=== PATIENT | female | born 1945 | race Caucasian/White ===

== ENCOUNTER 2017-12-01 14:13 | Emergency (ER) | payer BC ==
[2017-12-01 14:41] VITALS: BP 127/85; PULSE 66; TEMP 98.3; BMI 30.9
--- NOTE | 2017-12-01 14:48 | PDOC ---
Attending Attestation - HPI HPI: 12/01/17 15:37 Pt is a 72 yo F with a PMHx of Asthma, Atrial tachycardia, HTN who presents to the ED with R leg pain for the past month. Patients pain has been worsening when standing and is unable to bear full weight. Patient also complains of tenderness behind her knee and presents to the ED for further evaluation. Patient was seen by her orthopedist for the same complaint, with negative workup. - Medical Decision Making 12/01/17 15:37 Documentation prepared by Maria Guadalupe Maher, acting as medical billing associate for Vicky Dougherty MD <Maria Guadalupe Maher - Last Filed: 12/01/17 15:37> - Resident Resident Name: Gunnar Newton - ED Attending Attestation I have performed the following: I have examined & evaluated the patient, The case was reviewed & discussed with the resident, I agree w/resident's findings & plan, Exceptions are as noted - Physicial Exam PE: GENERAL: Awake, alert, and fully oriented, in no acute distress HEAD: No signs of trauma EYES: PERRLA, EOMI, sclera anicteric, conjunctiva clear ENT: Auricles normal inspection, hearing grossly normal, nares patent, oropharynx clear without exudates. Moist mucosa NECK: Normal ROM, supple, no lymphadenopathy, JVD, or masses LUNGS: Breath sounds equal, clear to auscultation bilaterally. No wheezes, and no crackles HEART: Regular rate and rhythm, normal S1 and S2, no murmurs, rubs or gallops ABDOMEN: Soft, nontender, normoactive bowel sounds. No guarding, no rebound. No masses EXTREMITIES: RLE- no ligamentous instability to the knee. Win's test negative. Mild crepitus on ROM of the R knee. No calf or groin tenderness, no peripheral edema. Patient states her pain improves with straight leg raise. Remainder of extremities with normal range of motion, no edema. No clubbing or cyanosis. No cords, erythema, or tenderness NEUROLOGICAL: Cranial nerves II through XII grossly intact. Normal speech. Motor and sensation intact. +Antalgic gait. SKIN: Warm, Dry, normal turgor, no rashes or lesions noted. - Medical Decision Making Ultrasound negative for DVT. However, suspect this is more musculoskeletal in origin, as the pain improves with stretching of the hamstring muscles. Also, when she does have the pain, she indicates the insertion points of the hamstring muscles. Will treat with analgesic and muscle relaxer. Likely DC home. <Vicky Dougherty - Last Filed: 12/01/17 16:22>
--- NOTE | 2017-12-01 15:09 | PDOC ---
History of Present Illness - General Chief Complaint: Pain Stated Complaint: LEG PAIN Time Seen by Provider: 12/01/17 14:46 - History of Present Illness Initial Comments: 12/01/17 15:58 The patient is a 72 year old female with a history of HTN, Atrial tachycardia who presents for evaluation of right leg pain. The patient reports a 1 month history of intermittent right lower extremity pain worse with movement and standing. She states that the pain began after working out on a bike 1 month ago. She states that she has seen Dr. Espinoza on an outpatient basis who informed her that her symptoms were likely muscular in nature. She noted worsening pain while standing today with difficulty ambulating due to pain prompting her presentation to the ED for further evaluation. She denies any recent long travel or surgery and otherwise denies fevers, chills, SOB, chest pain, nausea, vomiting, abdominal pain, or changes with urination or bowel movements. Past History - Past Medical History Allergies/Adverse Reactions: Allergies Allergy/AdvReac Type Severity Reaction Status Date / Time No Known Drug Allergies Allergy Verified 12/01/17 14:37 Home Medications: Ambulatory Orders Aspirin [Aspir 81] 81 mg PO DAILY 11/20/13 Doxycycline Hyclate 100 mg PO DAILY tablet 11/20/13 Metoprolol Tartrate 25 mg PO DAILY tablet 11/20/13 Tiotropium [place] [Spiriva] 18 mcg IH DAILY 11/20/13 Cholecalciferol (Vitamin D3) [Vitamin D3] 5,000 unit PO DAILY 12/08/13 Cyanocobalamin [Vitamin B12 -] 1,000 mcg PO DAILY 12/08/13 Bifidobacterium Infantis [Align] 4 mg PO DAILY capsule 02/25/15 Ascorbate Calcium [Vitamin C] 500 mg PO DAILY 04/22/15 Vitamin B Complex 1 each PO DAILY 04/22/15 Anemia: No Asthma: Yes (?? BUT USES INHALER) Cancer: No Cardiac Disorders: Yes (IRREG HEART BEAT(ATRIAL TACHYCARDIA)) CVA: No COPD: No CHF: No Dementia: No Diabetes: No GI Disorders: Yes (COLONIC POLYPS(ADENOMAS)) Disorders: No HTN: No Hypercholesterolemia: No Liver Disease: No Seizures: No Thyroid Disease: No - Surgical History Appendectomy: No Cardiac Surgery: No Cholecystectomy: No Lung Surgery: No Neurologic Surgery: No Orthopedic Surgery: No - Suicide/Smoking/Psychosocial Hx Smoking History: Former smoker Have you smoked in the past 12 months: No If you are a former smoker, when did you quit?: 1985 Information on smoking cessation initiated: No Hx Alcohol Use: No Drug/Substance Use Hx: No Substance Use Type: None Review of Systems - Review of Systems Comments:: 12/01/17 16:03 Constitutional: No fevers, chills, fatigue, malaise HEENT: No Rhinorrhea, nasal congestion, visual changes Cardiovascular: No chest pain, syncope, palpitations, lightheadedness Respiratory: No Cough, SOB, Hemoptysis, Gastrointestinal: No Abdominal pain, Nausea, Vomiting, Constipation, Diarrhea, Melena Genitourinary: No Dysuria, Frequency, Urgency, Hesitancy, Hematuria, Flank pain Musculoskeletal: Right Leg Pain. No Myalgia, arthralgia Skin: No rashes, itching, bruising, pallor Neurologic: No Headache, Dizziness, Numbness, Weakness, or Tingling Psychiatric: No Hallucinations. No SI or HI *Physical Exam - Vital Signs Last Vital Signs Temp Pulse Resp BP Pulse Ox 98.3 F 66 19 127/85 98 12/01/17 14:37 12/01/17 14:37 12/01/17 14:37 12/01/17 14:37 12/01/17 14:37 - Physical Exam Comments: 12/01/17 16:03 General Appearance: Nourished. No Apparent Distress HEENT: EOMI, AMAURY. No Pharyngeal Erythema, Tonsillar Exudate, Tonsillar Erythema Neck: No Cervical Lymphadenopathy Respiratory/Chest: Lungs Clear, Normal Breath Sounds. No Crackles, Rales, Rhonchi, Wheezing Cardiovascular: Regular Rhythm, Regular Rate. No Murmur, Gallops, Rubs Gastrointestinal/Abdominal: Normal Bowel Sounds, Soft. No Guarding, Rebound, Tenderness Musculoskeletal: No CVA Tenderness Extremity: Normal range of motion of the right lower extremity. No edema or tenderness to palpation on exam. 2+ dp pulses bilaterally. No erythema or warmth noted. Sensation to light touch and temperature intact bilaterally. Normal Capillary Refill Integumentary: Normal Color, Dry, Warm Neurologic: Fully Oriented, Alert, Normal Mood/Affect, Normal Response, Motor Strength 5/5. ED Treatment Course - RADIOLOGY Radiology Studies Ordered: Category Date Time Status DUPLEX VASCUL US-1 LEG [US] Stat Ultrasound 12/01/17 15:09 Ordered Medical Decision Making - Medical Decision Making 12/01/17 16:05 The patient is a 72 year old female with a history of HTN, Atrial tachycardia who presents for evaluation of right leg pain. Differential includes but is not limited: Fracture, DVT, Murcia's Cyst, Tendon or Ligamentous injury. Given the patient's history we will obtain a plain film of the patient's knee as well as a DVT US. We will treat with ibuprofen and robaxin in the meantime and continue to monitor and reassess. 12/01/17 17:13 US is negative for DVT and plain films are unremarkable. It is likely the patient's symptoms are due to strained muscle or ligamentous injury. We are comfortable discharging the patient home at this time with primary care provider follow up. We discussed the results, plan, and return precautions with the patient who voiced understanding and is agreeable with the plan. *DC/Admit/Observation/Transfer Diagnosis at time of Disposition: Leg pain Qualifiers: Laterality: right Qualified Code(s): M79.604 - Pain in right leg - Discharge Dispostion Disposition: HOME Condition at time of disposition: Stable Decision to Admit order: No - Referrals - Patient Instructions Printed Discharge Instructions: DI for Leg Pain Additional Instructions: Please return to the ER if you experience concerning or worsening symptoms including worsening pain, fevers, chills, numbness, or weakness. Your x-ray and ultrasound were normal here in the ER. It is important that you call to schedule a follow up appointment with your primary care provider within 2-3 days to discuss your ER visit and further management of your symptoms. - Post Discharge Activity
[2017-12-01] MEDS ORDERED: METHOCARBAMOL 500 MG TABLET PO ONE (16:11)
[2017-12-01] MEDS ORDERED: IBUPROFEN 400 MG TABLET (FP) PO ONE ×2 (16:11→16:16)
[2017-12-01] MEDS ORDERED: METHOCARBAMOL 500 MG TABLET ONE (16:16)
== END 2017-12-01 17:18 | disposition home or self-care (01) ==
LOC: JER 14:13
DX: M79.604 Pain in right leg (principal); J45.909 Unspecified asthma, uncomplicated; I47.1 Supraventricular tachycardia; Z86.010 Personal history of colon polyps; Z87.891 Personal history of nicotine dependence
CPT/HCPCS: 73562-TC-RT-FY; 93971-TC; 99283-25

== ENCOUNTER 2017-12-17 07:03 | Day surgery (SDC) | payer BC ==
[2017-12-17 07:42] VITALS: BMI 31.2
[2017-12-17 15:47] VITALS: BP 120/56; PULSE 60; TEMP 97.8
--- NOTE | 2017-12-20 13:50 | PATH ---
Surgical Pathology Report Patient Name: CHACORTA GRANADOS [facility]. Rec. #: [id number] /Age/Gender: 1945 (Age: 72) / F Account: [id number] Location: ASU-ENDOSCOPY Taken: 12/17/2017 Received: 12/17/2017 Reported: 12/20/2017 Physicians: Jairo Spicer M.D. Specimen(s) Received BX OF RIGHT COLON POLYP Clinical History Hyperlipidemia Final Diagnosis RIGHT COLON POLYP, BIOPSY: COLONIC MUCOSA WITH SUBMUCOSAL LEIOMYOMA. Comment: The submucosal nodule is highlighted by immunostain SMA, while negative for CD117 and DOG-1, which supports the diagnosis of leiomyoma. Immuno stains was performed at [facility] ([id number]). Positive and negative controls (internal if applicable) show appropriate results. Electronically Signed Bladimir Verma M.D. Gross Description Received in formalin, labeled "biopsy polyp from right colon" is a, irregular portion of soft tissue measuring 0.3 cm. in greatest dimension. The specimen is submitted in toto in one cassette. LISA/12/17/2017 glen/12/17/2017
== END 2017-12-17 10:20 | disposition home or self-care (01) ==
LOC: JASU-ENDO 07:03
PROVIDERS: ATTEND Internal Medicine Gastroenterology
PROC: 0DBK8ZX Excision of Ascending Colon, Via Natural or Artificial Opening Endoscopic, Diagnostic (ICD-10-PCS; principal; 2017-12-17 10:45)
DX: Z12.11 Encounter for screening for malignant neoplasm of colon (principal); Z86.010 Personal history of colon polyps; D12.2 Benign neoplasm of ascending colon; K64.8 Other hemorrhoids
CPT/HCPCS: 88305-TC

== ENCOUNTER 2021-12-21 19:51 | Emergency (ER) | payer OTHER, MEDICARE ==
[2021-12-21 20:30] VITALS: BP 160/58; PULSE 88; TEMP 99.3; BMI 31.7
== END 2021-12-22 00:13 | disposition home or self-care (01) ==
LOC: JER 19:51
DX: U07.1 COVID-19 (principal)
CPT/HCPCS: 0241U-QW; 99283-25

== ENCOUNTER 2021-12-22 08:23 | Emergency (ER) | payer OTHER, MEDICARE ==
[2021-12-22 08:28] VITALS: BP 126/51; PULSE 82; TEMP 99; BMI 31.7
[2021-12-22] MEDS ORDERED: BEBTELOVIMAB (EUA) 175 MG/2 ML VIAL IVPUSH ONE (08:50)
== END 2021-12-22 10:33 | disposition home or self-care (01) ==
LOC: JCOVINFU 08:23
DX: U07.1 COVID-19 (principal)
CPT/HCPCS: 99284-25; M0222; Q0222

== ENCOUNTER 2022-09-25 12:06 | Day surgery (SDC) | payer OTHER, MEDICARE ==
[2022-09-25] MEDS ORDERED: FERRIC CARBOXYMALTOSE 750 MG in SODIUM CHLORIDE 250 ML IVPB ONE (12:45)
[2022-09-25 15:28] VITALS: BP 140/52; PULSE 74; RESP 18; TEMP 98.4
== END 2022-09-25 13:50 | disposition home or self-care (01) ==
LOC: FINFUSION 12:06 → FM/S 12:11 → FINFUSION 13:50
PROVIDERS: ATTEND Family Medicine
PROC: 3E033GC Introduction of Other Therapeutic Substance into Peripheral Vein, Percutaneous Approach (ICD-10-PCS; principal; 2022-09-25)
DX: D50.9 Iron deficiency anemia, unspecified (principal)
CPT/HCPCS: 96365; J1439

== ENCOUNTER 2022-10-02 10:58 | Day surgery (SDC) | payer OTHER, MEDICARE ==
[2022-10-02 11:14] VITALS: RESP 18; TEMP 98
[2022-10-02] MEDS ORDERED: FERRIC CARBOXYMALTOSE 750 MG in SODIUM CHLORIDE 250 ML IVPB ONE (11:15)
[2022-10-02 12:08] VITALS: BP 130/60; PULSE 80
== END 2022-10-02 12:12 | disposition home or self-care (01) ==
LOC: FM/S 10:58 → FINFUSION 10:58
PROVIDERS: ATTEND Family Medicine
PROC: 3E033GC Introduction of Other Therapeutic Substance into Peripheral Vein, Percutaneous Approach (ICD-10-PCS; principal; 2022-10-02)
DX: D50.9 Iron deficiency anemia, unspecified (principal)
CPT/HCPCS: 96365; J1439

== ENCOUNTER 2022-11-15 04:15 | Day surgery (SDC) | payer OTHER, MEDICARE ==
[2022-11-13 15:34] VITALS: BMI 31.7
[2022-11-15 08:23] VITALS: TEMP 98.2
[2022-11-15 08:57] VITALS: BP 136/49; PULSE 63; RESP 12
== END 2022-11-15 09:00 | disposition home or self-care (01) ==
LOC: JASU-ENDO 04:15
PROVIDERS: ATTEND Internal Medicine Gastroenterology
PROC: 0DBK8ZX Excision of Ascending Colon, Via Natural or Artificial Opening Endoscopic, Diagnostic (ICD-10-PCS; 2022-11-15)
PROC: 0DBL8ZX Excision of Transverse Colon, Via Natural or Artificial Opening Endoscopic, Diagnostic (ICD-10-PCS; principal; 2022-11-15 08:00)
DX: Z12.11 Encounter for screening for malignant neoplasm of colon (principal); D12.2 Benign neoplasm of ascending colon; D12.3 Benign neoplasm of transverse colon; K64.8 Other hemorrhoids; K63.89 Other specified diseases of intestine; Z86.010 Personal history of colon polyps
CPT/HCPCS: 88305-TC

== ENCOUNTER 2023-08-30 10:27 | Day surgery (SDC) | payer OTHER, MEDICARE ==
[2023-08-30] MEDS: IRON SUCROSE INJECTION 200 MG in SODIUM CHLORIDE 100 ML IVPB ONE (11:35)
[2023-08-30 12:05] VITALS: BP 130/57; PULSE 74; RESP 18; TEMP 98.4
== END 2023-08-30 13:16 | disposition home or self-care (01) ==
LOC: FINFUSION 10:27 → FM/S 10:29 → FINFUSION 13:16
PROVIDERS: ATTEND Family Medicine
PROC: 3E033GC Introduction of Other Therapeutic Substance into Peripheral Vein, Percutaneous Approach (ICD-10-PCS; principal; 2023-08-30)
DX: D50.9 Iron deficiency anemia, unspecified (principal)
CPT/HCPCS: 96365; J1756

== ENCOUNTER → 2023-09-19 | Day surgery (SDC) | payer OTHER, MEDICARE ==
[2023-09-17 10:42] VITALS: BMI 33.8
[~2023-09-19] MED LIST: LIDOCAINE VISCOUS 2% ORAL/TOP 15 ML UNIT-DOSE CUP ONE
[2023-09-19 09:03] VITALS: TEMP 98.6
[2023-09-19 09:17] VITALS: RESP 18
[2023-09-19 12:10] VITALS: BP 160/75; PULSE 73
== END | disposition home or self-care (01) ==
LOC: JASU-ENDO 04:24
PROVIDERS: ATTEND Internal Medicine Gastroenterology
PROC: 0DB78ZX Excision of Stomach, Pylorus, Via Natural or Artificial Opening Endoscopic, Diagnostic (ICD-10-PCS; 2023-09-19)
PROC: 0DB68ZX Excision of Stomach, Via Natural or Artificial Opening Endoscopic, Diagnostic (ICD-10-PCS; principal; 2023-09-19 08:30)
DX: C16.9 Malignant neoplasm of stomach, unspecified (principal)
CPT/HCPCS: 88305-TC; 88342-TC

== ENCOUNTER 2024-08-24 11:41 | Day surgery (SDC) | payer OTHER, MEDICARE ==
[2024-08-24] MEDS: IRON SUCROSE INJECTION 200 MG in SODIUM CHLORIDE 100 ML IVPB ONE (12:09)
[2024-08-24] MEDS: HYDROCORTISONE SOD SUCCINATE 100 MG/2 ML VIAL IVPUSH PRN (12:11)
[2024-08-24] MEDS: diphenhydrAMINE HCL 50 MG CAPSULE PO PRN (12:11)
[2024-08-24 13:54] VITALS: BP 125/76; PULSE 82; RESP 16; TEMP 98
== END 2024-08-24 13:57 | disposition home or self-care (01) ==
LOC: FINFUSION 11:41 → FM/S 11:42 → FINFUSION 13:57
PROVIDERS: ATTEND Family Medicine
PROC: 3E033GC Introduction of Other Therapeutic Substance into Peripheral Vein, Percutaneous Approach (ICD-10-PCS; principal; 2024-08-24)
DX: D50.9 Iron deficiency anemia, unspecified (principal)
CPT/HCPCS: 96365; J1756

== ENCOUNTER 2024-08-31 11:19 | Day surgery (SDC) | payer OTHER, MEDICARE ==
[2024-08-31] MEDS: IRON SUCROSE INJECTION 200 MG in SODIUM CHLORIDE 100 ML IVPB ONE (12:14)
[2024-08-31 12:17] VITALS: RESP 16; TEMP 98.6
[2024-08-31 13:45] VITALS: BP 115/58; PULSE 69
== END 2024-08-31 13:46 | disposition home or self-care (01) ==
LOC: FINFUSION 11:19 → FM/S 11:21 → FINFUSION 13:46
PROVIDERS: ATTEND Family Medicine
PROC: 3E033GC Introduction of Other Therapeutic Substance into Peripheral Vein, Percutaneous Approach (ICD-10-PCS; principal; 2024-08-31)
DX: D50.9 Iron deficiency anemia, unspecified (principal)
CPT/HCPCS: 96365; J1756

== ENCOUNTER 2024-09-07 11:31 | Day surgery (SDC) | payer OTHER, MEDICARE ==
[2024-09-07] MEDS: IRON SUCROSE INJECTION 200 MG in SODIUM CHLORIDE 100 ML IVPB ONE (10:39)
[2024-09-07] MEDS ORDERED: diphenhydrAMINE HCL 50 MG CAPSULE PO PRN (11:53)
[2024-09-07] MEDS ORDERED: HYDROCORTISONE SOD SUCCINATE 100 MG/2 ML VIAL IVPB PRN (11:54)
[2024-09-07 12:21] VITALS: RESP 18; TEMP 98.1
[2024-09-07 13:16] VITALS: BP 119/59; PULSE 74
== END 2024-09-07 13:17 | disposition home or self-care (01) ==
LOC: FINFUSION 11:31 → FM/S 11:35 → FINFUSION 13:17
PROVIDERS: ATTEND Family Medicine
PROC: 3E033GC Introduction of Other Therapeutic Substance into Peripheral Vein, Percutaneous Approach (ICD-10-PCS; principal; 2024-09-07)
DX: D50.9 Iron deficiency anemia, unspecified (principal)
CPT/HCPCS: 96365; J1756

== ENCOUNTER → 2024-10-01 | Day surgery (SDC) | payer OTHER, MEDICARE | END | disposition home or self-care (01) | LOC: FMAMMOTONE 12:11 | PROVIDERS: ATTEND Family Medicine | PROC: 0HBT3ZX Excision of Right Breast, Percutaneous Approach, Diagnostic (ICD-10-PCS; principal; 2024-10-01) | DX: N60.01 Solitary cyst of right breast (principal); N64.89 Other specified disorders of breast; R92.1 Mammographic calcification found on diagnostic imaging of breast | CPT/HCPCS: 19081; 76098-TC-FY; 87899; 88305-TC; A4648 ==

== ENCOUNTER 2024-12-10 06:46 | Day surgery (SDC) | payer OTHER, MEDICARE ==
[2024-12-09 11:22] VITALS: BMI 27.8
[2024-12-10 07:25] VITALS: TEMP 97.9
[2024-12-10 08:11] VITALS: RESP 18
[2024-12-10 08:43] VITALS: PULSE 64
[2024-12-10 08:44] VITALS: BP 139/56
== END 2024-12-10 08:47 | disposition home or self-care (01) ==
LOC: JASU-ENDO 06:46
PROVIDERS: ATTEND Internal Medicine Gastroenterology
PROC: 0DBK8ZX Excision of Ascending Colon, Via Natural or Artificial Opening Endoscopic, Diagnostic (ICD-10-PCS; 2024-12-10)
PROC: 0DB68ZX Excision of Stomach, Via Natural or Artificial Opening Endoscopic, Diagnostic (ICD-10-PCS; 2024-12-10)
PROC: 0DBP8ZX Excision of Rectum, Via Natural or Artificial Opening Endoscopic, Diagnostic (ICD-10-PCS; principal; 2024-12-10 07:30)
DX: Z12.11 Encounter for screening for malignant neoplasm of colon (principal); D12.2 Benign neoplasm of ascending colon; D37.5 Neoplasm of uncertain behavior of rectum; K62.1 Rectal polyp; K29.50 Unspecified chronic gastritis without bleeding; K31.A12 Gastric intestinal metaplasia without dysplasia, involving the body (corpus); Z85.028 Personal history of other malignant neoplasm of stomach; Z98.0 Intestinal bypass and anastomosis status
CPT/HCPCS: 88305-TC; 88341-TC; 88342-TC